=== PATIENT | female | born 1995 | race Two or more races ===

== ENCOUNTER 2016-09-04 09:10 | Emergency (ER) | payer SELFPAY ==
[~2016-09-04] VITALS: Ht 170.2 cm; Wt 81.8 kg
[2016-09-04] MEDS ORDERED: OXYMETAZOLINE HCL 0.05% 15 ML NASAL SPRAY NASAL ONE (10:45)
[2016-09-04 11:29] VITALS: BP 118/70
== END 2016-09-04 11:31 | disposition home or self-care (01) ==
LOC: EMS 09:13
DX: J32.9 Chronic sinusitis, unspecified (principal)
CPT/HCPCS: 99283